=== PATIENT | female | born 1975 | race Caucasian/White ===

== ENCOUNTER → 2021-11-14 09:31 | Outpatient (CLI) | payer OTHER, SELFPAY | PROVIDERS: PCP Family Medicine; Visit Provider Physician Assistant | DX: R30.0 Dysuria (principal) | CPT/HCPCS: 87077; 87086; 87186 ==

== ENCOUNTER → 2022-01-23 09:52 | Outpatient (CLI) | payer OTHER, SELFPAY | PROVIDERS: PCP Family Medicine; Visit Provider Physician Assistant | DX: N34.3 Urethral syndrome, unspecified (principal) | CPT/HCPCS: 87086 ==

== ENCOUNTER 2022-09-04 09:39 | Day surgery (SDC) | payer OTHER, SELFPAY ==
[2022-09-04] MEDS: FLEETS ENEMA 1 EACH PR (10:36)
[2022-09-04 10:43] VITALS: BMI 24.5
[2022-09-04 10:48] VITALS: BP 106/70; PULSE 61; RESP 12; TEMP 36.9; O2SAT 100
[2022-09-04] MEDS: LACTATED RINGERS 1,000 ML 200 ML IV (10:58)
--- NOTE | 2022-09-04 11:58 | PM.HP.1 ---
History of Present Illness History of Present Illness Date Patient Seen: 09/04/22 Time Patient Seen: 11:58 Chief complaint: Colonoscopy Narrative: The patient presents for colorectal screening. They have never had any previous examination for such. No personal or family history of colon cancer. On further history denies any recent gastrointestinal symptoms. No nausea, vomiting, abdominal pain, loss of appetite, unexplained weight loss, change in bowel habits, or blood per rectum. Patient History Medical History Abnormal Pap smear of cervix (~2002) Chicken pox (~1982) History of malignant neoplasm of skin (~2006) Human papilloma virus (~2002) Oral herpes (~1996) Recurrent cold sores Surgical History Anesthesia History of knee surgery (~07/2018) History of removal of skin mole (~2003) History of third molar tooth extraction Status post delivery (07/29/08) Status post delivery (12/14/10) Status post colposcopy Status post colposcopy Family & Social History Family History Father Hyperlipidemia Mother Alzheimer's disease Breast cancer Grandfather Cancer Grandfather History of heart disease Social History: household members spouse Tobacco & Substance use: Smoking Status Never smoker alcohol intake current alcohol intake frequency 0-2 drinks per day Substance Use Type does not use Meds Home Medications and Allergies Home Medications Medication Instructions Recorded Confirmed Type valacyclovir 1 gram tablet See Rx Instructions .Route 06/19/22 09/04/22 Rx (Valtrex) .COMPLEX #20 tabs sodium,potassium,mag sulfates 17.5 See Rx Instructions PO .COMPLEX 08/30/22 09/04/22 Rx gram-3.13 gram-1.6 gram oral soln #354 mL (Suprep Bowel Prep Kit) Allergies Allergy/AdvReac Type Severity Reaction Status Date / Time sulfamethoxazole Allergy Mild Rash Verified 09/04/22 10:42 [From Bactrim] trimethoprim [From Bactrim] Allergy Mild Rash Verified 09/04/22 10:42 Exam Vital Signs (past 8 hours): - 09/04/22 10:48 Temperature 98.5 F Pulse Rate 61 Respiratory Rate 12 Blood Pressure 106/70 Pulse Oximetry 100 Oxygen Delivery Method Room Air Oxygen Delivery Method Room Air Narrative Exam Narrative: General adult woman alert oriented no acute distress Assessment & Plan Assessment & Plan narrative: The patient requires colorectal screening and colonoscopy is recommended. Technical details were discussed. Risks, benefits, alternatives explained. Risks including but not limited to myocardial infarction, aspiration, bleeding, pain, missed lesion, incomplete examination, need for further radiographic studies, colonic perforation, and need for major abdominal surgery were discussed. All questions were answered to their satisfaction, and they are in agreement with this plan. Time Spent With Patient Critical Care time: I spent a total of [] minutes of critical care time on this patient's care today; this time is exclusive of procedural time.
--- NOTE | 2022-09-04 12:01 | PM.OP.COLON ---
Operative Date/Time/Diagnoses Date of procedure: 09/04/22 Time of procedure: 12:01 Pre-op diagnosis: Colorectal screening Post-op diagnosis: same Procedure & Clinicians Study performed: Colonoscopy Same procedure as scheduled: Yes Indications: Colorectal screening Surgeon: Mckay Macario Procedure Notes Procedure in detail: The history and physical was performed/updated and the patient is ASA class is 1. The procedure was discussed in detail with the patient. Potential risks complications including infection, bleeding, missed diagnosis, perforation, need for surgery, and were explained. Their questions were answered and informed consent was obtained. Patient was brought to the procedure room and placed standard monitoring equipment. The patient's vital signs were monitored continuously throughout the entire procedure. Prior to starting time-out was performed. The patient was placed in the left lateral recumbent position. Procedural sedation was administered by anesthesia. Examination began with a thorough inspection of the perianal area there was no evidence of fissures, fistulae, external hemorrhoids or cutaneous malignancy. The colonoscopy scope was then placed into the anal canal and was advanced to the cecum, which was identified by the ileocecal valve, the appendiceal orifice and the confluence of the taenia. The scope was then slowly withdrawn examining colon thoroughly in all directions, irrigating it of any residual stool. Normal healthy colon. No masses polyps or inflammation. The patient tolerated the procedure well. They will be discharged once criteria are met. The prep was of good/excellent quality. The withdrawl time was 6 minutes. Impression: Normal colonoscopy Post-procedure Recommendations: Colonoscopy in 10 years and High fiber diet Disposition: same day surgery
[2022-09-04 12:34] VITALS: BP 111/75; PULSE 76; RESP 20; TEMP 37.2; O2SAT 98
[2022-09-04 12:39] VITALS: BP 106/71; PULSE 73; RESP 24; O2SAT 99
--- NOTE | 2022-09-04 12:43 | SUR.PHASEII ---
Dr. Darden Unable to enter orders for dischage in [facility]. Calling IT. Verbal order to discharge, normal colonoscopy.
[2022-09-04 12:45] VITALS: BP 109/70; PULSE 61; RESP 18; TEMP 37.2; O2SAT 99
== END 2022-09-04 13:05 | disposition home or self-care (01) ==
PROVIDERS: PCP Registered Nurse Diabetes Educator; Referring Provider Surgery; Visit Provider Surgery
PROC: 0DJD8ZZ Inspection of Lower Intestinal Tract, Via Natural or Artificial Opening Endoscopic (ICD-10-PCS; CPT 45378; principal; 2022-09-04 10:45)
DX: Z12.11 Encounter for screening for malignant neoplasm of colon (principal)
CPT/HCPCS: 45378; J2704

== ENCOUNTER → 2022-09-10 07:56 | Outpatient (CLI) | payer OTHER, SELFPAY ==
--- NOTE | 2022-09-10 07:57 | DI.US.S_ITS ---
PROCEDURE: US ABDOMEN LIMITED INDICATIONS: RULE OUT LYPOMA TECHNIQUE: Real-time focused scanning was performed of the abdomen, with image documentation. COMPARISON: None. FINDINGS: Targeted ultrasound of the left medial scapular region demonstrates no sonographic abnormality. IMPRESSION: No sonographic abnormality. Dictated by: Corey Jarvis M.D. on 09/10/2022 at 11:19 Approved by: Corey Jarvis M.D. on 09/10/2022 at 11:19
--- NOTE | 2022-09-10 08:13 | DI.MG.S_ITS ---
Procedure: MM screening mammo BI BILATERAL DIGITAL SCREENING MAMMOGRAM 3D/2D WITH CAD: 09/10/2022 CLINICAL: Routine screening. Comparison is made to exams dated: 03/30/2014 mammogram, 03/20/2013 mammogram, and 03/19/2012 mammogram - [facility]. Both breasts are heterogeneously dense, which may obscure small masses (category c / 51-75% glandular tissue). Current study was also evaluated with a Computer Aided Detection (CAD) system. No significant masses, calcifications, or other findings are seen in either breast. There has been no significant interval change. IMPRESSION: NEGATIVE There is no mammographic evidence of malignancy. A 1 year screening mammogram is recommended. Based on Tyrer-Cuzick model (a risk assessment model), the patient's lifetime risk is 29.0% and her 10 year risk is 6.1%. If a patient has an elevated risk, a more comprehensive evaluation should be considered and/or a referral to a genetic counselor. The [place] [employer], [employer], and NCCN Guidelines advise the consideration of Breast MRI as an adjunct to screening mammography in patients whose Lifetime risk to develop breast cancer is 20% or higher. This exam was interpreted at Station ID: [id number]. Continued Report - Page 2 of 2 Patient Name: ARUN SAUER date: 1975 Sex: F Attending Physician: Norman Indications: Date: 09/10/2022 09:36 At the request of: LOW KILLIAN Procedure: MM screening mammo BI NOTE: For mammograms, a report in lay terms will be sent to the patient. Approximately 15% of breast malignancies will not be visualized mammographically. In the management of a palpable breast mass, a negative mammogram must not discourage biopsy of a clinically suspicious lesion. Electronically Signed By: Lokesh Butcher M.D. [email or web address]:09/10/2022 09:36:13 letter sent: Normal Exam ACR BI-RADS Category 1: Negative 3341F
== END ==
PROVIDERS: PCP Registered Nurse Diabetes Educator; Referring Provider Registered Nurse Diabetes Educator; Visit Provider Registered Nurse Diabetes Educator
DX: R22.2 Localized swelling, mass and lump, trunk (principal); Z12.31 Encounter for screening mammogram for malignant neoplasm of breast
CPT/HCPCS: 76705; 77063; 77067

== ENCOUNTER → 2023-09-24 14:44 | Outpatient (CLI) | payer OTHER, SELFPAY ==
--- NOTE | 2023-09-24 14:45 | DI.MG.S_ITS ---
BILATERAL DIGITAL SCREENING MAMMOGRAM 3D/2D WITH CAD: 09/24/2023 CLINICAL: Routine screening. Comparison is made to exams dated: 09/10/2022 mammogram, 03/20/2013 mammogram, and 03/30/2014 mammogram - [facility]. Both breasts are heterogeneously dense, which may obscure small masses (category c / 51-75% glandular tissue). Current study was also evaluated with a Computer Aided Detection (CAD) system. No significant masses, calcifications, or other findings are seen in either breast. There has been no significant interval change. IMPRESSION: NEGATIVE There is no mammographic evidence of malignancy. A 1 year screening mammogram is recommended. Based on Tyrer-Cuzick model (a risk assessment model), the patient's lifetime risk is 28.9% and her 10 year risk is 6.4%. If a patient has an elevated risk, a more comprehensive evaluation should be considered and/or a referral to a genetic counselor. The [employer], [employer], and NCCN Guidelines advise the consideration of Breast MRI as an adjunct to screening mammography in patients whose Lifetime risk to develop breast cancer is 20% or higher. This exam was interpreted at Station ID: [id number]. NOTE: For mammograms, a report in lay terms will be sent to the patient. Approximately 15% of breast malignancies will not be visualized mammographically. In the management of a palpable breast mass, a negative mammogram must not discourage biopsy of a clinically suspicious lesion. Electronically Signed By: Christophe lei/melba:09/25/2023 08:34:02 letter sent: Normal Exam ACR BI-RADS Category 1: Negative 3341F
== END ==
PROVIDERS: PCP Registered Nurse Diabetes Educator; Referring Provider Registered Nurse Diabetes Educator; Visit Provider Registered Nurse Diabetes Educator
DX: Z12.31 Encounter for screening mammogram for malignant neoplasm of breast (principal); R92.333 Mammographic heterogeneous density, bilateral breasts
CPT/HCPCS: 77063; 77067

== ENCOUNTER → 2023-10-31 08:00 | Outpatient (CLI) | payer OTHER, SELFPAY ==
[2023-10-31 08:38] LABS: Hematocrit 37.8 % (36-46); Hemoglobin 12.8 g/dL (12.0-16.0); Mean Corpuscular HGB Conc 33.9 % (30-36); Mean Corpuscular Hemoglobin 31.6 PG (26-34); Mean Corpuscular Volume 93.1 fL (80-100); Platelet Count 267 X10^3/uL (150-400); Red Blood Cell Count 4.06 X10^6/uL (4.0-5.2); Red Cell Distribution Width 12.6 % (11.6-14.8); White Blood Cell Count 5.1 X10^3/uL (4.5-11.0)
[2023-10-31 09:00] LABS: Alanine Aminotransferase 17 IU/L (<35); Albumin 4.1 g/dL (3.5-5.0); Albumin Globulin Ratio 1.8 (1.0-2.8); Alkaline Phosphatase 48 U/L (38-126); Aspartate Aminotransferase 30 IU/L (14-36); Bilirubin Total 0.7 mg/dL (0.2-1.3); Blood Urea Nitrogen 15 mg/dL (7-17); Calcium 9.1 mg/dL (8.4-10.2); Carbon Dioxide 23 mmol/L (22-32); Chloride 109 mmol/L (98-107); Cholesterol 184 mg/dL (140-199); Estimated Glomerular Filt Rate > 60 mL/min (>60); Globulin 2.3 g/dL (1.7-4.1); Glucose 88 mg/dL (70-100); HDL Cholesterol 74 mg/dL (40-60); HEMOLYSIS < 15 (0-50); LDL Cholesterol Calculated 100 mg/dL (<100); Potassium 4.4 mmol/L (3.4-5.1); Sodium 137 mmol/L (137-145); Total Protein 6.4 g/dL (6.3-8.2); Triglycerides 50 mg/dL (35-150)
[2023-10-31 09:28] LABS: TSH w/ Reflex to FT4 2.68 uIU/mL (0.47-4.68)
[2023-10-31 17:05] LABS: Rubella Antibody IgG 5.3 IU/mL (>15)
[2023-11-01 09:45] LABS: Rubeola Measles IgG < 13.5 AU/mL (Immune >16.4)
== END ==
PROVIDERS: PCP Registered Nurse Diabetes Educator; Referring Provider Registered Nurse Diabetes Educator; Visit Provider Registered Nurse Diabetes Educator
DX: Z01.419 Encounter for gynecological examination (general) (routine) without abnormal findings (principal); Z01.84 Encounter for antibody response examination
CPT/HCPCS: 36415; 80053; 80061; 84443; 85027; 86735; 86762; 86765

== ENCOUNTER → 2023-11-25 08:26 | Outpatient (CLI) | payer OTHER, SELFPAY ==
--- NOTE | 2023-11-25 08:27 | DI.US.S_ITS ---
PROCEDURE: US PELVIC COMPLETE INDICATIONS: eval heavy menses TECHNIQUE: Real-time scanning was performed of the pelvic organs, with image documentation. Additional endovaginal scanning was necessary due to incomplete visualization of the adnexal and endometrial structures by transabdominal scanning. COMPARISON: None. FINDINGS: Uterus: Uterus is anteverted and normal in size at 9.6 x 4.3 x 5.2 cm. The myometrium is homogeneous. The endometrium measures 13 mm combined thickness. Ovaries: The right ovary measures 2.4 x 1.9 x 1.8 cm, with a calculated ovarian volume of 2.4 cc. The left ovary measures 2.6 x 1.4 x 2.9 cm, with a calculated ovarian volume of 2.1 cc. The ovaries have a normal sonographic appearance. Less than 12 follicles can be seen in each ovary. No adnexal masses are seen. There is a complex right ovarian cyst which measures 1.5 x 1.1 x 1.2 cm, and a crenulated appearing cyst in the left ovary which measures 1.5 x 1.0 x 1.7 cm. Other: No pathologic free abdominal or pelvic fluid. IMPRESSION: 1. Probable right hemorrhagic cyst versus endometrioma. 6-12 week sonographic follow-up recommended. 2. Probable recently ruptured left follicular cyst. We strive to produce accurate, complete, and clear reports of imaging services. To assist us in improving patient care, this report was composed using standard report templates and voice recognition software. Therefore, it may contain abnormal punctuation, insertions and/or omissions. Occasional wrong-word or sound-alike substitutions may occur. Though we review the report and make efforts to correct it, we do recommend that the report be read carefully in proper context to recognize any text inaccuracies. Dictated by: Leah Obrien M.D. on 11/25/2023 at 11:55 Approved by: Leah Obrien M.D. on 11/25/2023 at 11:57
== END ==
LOC: US 08:27
PROVIDERS: PCP Registered Nurse Diabetes Educator; Referring Provider Registered Nurse Diabetes Educator; Visit Provider Registered Nurse Diabetes Educator
DX: N92.0 Excessive and frequent menstruation with regular cycle (principal)
CPT/HCPCS: 76856

== ENCOUNTER → 2024-01-15 10:13 | Outpatient (CLI) | payer OTHER, SELFPAY ==
--- NOTE | 2024-01-15 10:14 | DI.US.S_ITS ---
PROCEDURE: US PELVIC COMPLETE INDICATIONS: 6 week f/u US TECHNIQUE: Real-time scanning was performed of the pelvic organs, with image documentation. Additional endovaginal scanning was necessary due to incomplete visualization of the adnexal and endometrial structures by transabdominal scanning. COMPARISON: [facility], US, US PELVIC COMPLETE, 11/25/2023, 9:07. FINDINGS: Uterus: Uterus is anteverted and normal in size at 9.2 x 4.7 x 4.5 cm. The myometrium is homogeneous. The endometrium measures 12 mm combined thickness. There is a 1.2 x 0.7 x 1.2 cm hyperechoic lesion in the endometrium with internal vascularity, raising concern for a polyp. Ovaries: The right ovary measures 3.0 x 2.2 x 2.5 cm, with a calculated ovarian volume of 8.6 cc. The left ovary measures 2.4 x 1.2 x 1.7 cm, with a calculated ovarian volume of 2.5 cc. There is a 2.6 cm simple cyst in the right ovary. Previously seen possible hemorrhagic cyst versus endometrioma in the right ovary has resolved. The left ovary is unremarkable. Less than 12 follicles can be seen in each ovary. No adnexal masses are seen. Other: No pathologic free abdominal or pelvic fluid. IMPRESSION: 1. Findings concerning for 1.2 cm polyp in the endometrial canal. 2. Previously seen possible hemorrhagic cyst versus endometrioma in the right ovary has resolved. Simple cyst in the right ovary. We strive to produce accurate, complete, and clear reports of imaging services. To assist us in improving patient care, this report was composed using standard report templates and voice recognition software. Therefore, it may contain abnormal punctuation, insertions and/or omissions. Occasional wrong-word or sound-alike substitutions may occur. Though we review the report and make efforts to correct it, we do recommend that the report be read carefully in proper context to recognize any text inaccuracies. Dictated by: Ashtyn Villarreal M.D. on 01/15/2024 at 14:08 Approved by: Ashtyn Villarreal M.D. on 01/15/2024 at 14:13
== END ==
PROVIDERS: PCP Registered Nurse Diabetes Educator; Referring Provider Registered Nurse Diabetes Educator; Visit Provider Registered Nurse Diabetes Educator
DX: N83.291 Other ovarian cyst, right side (principal)
CPT/HCPCS: 76856

== ENCOUNTER 2024-03-30 13:55 | Day surgery (SDC) | payer OTHER, SELFPAY ==
[2024-03-26 09:42] VITALS: BMI 25.0
--- NOTE | 2024-03-30 | PATH_ITS ---
[facility] Accession Number: [id number] No. of containers..01 Tissue . 01 Material submitted: . endometrium - ENDOMETRIAL . 01 Diagnosis: ENDOMETRIUM, CURETTINGS: Histologic features suggestive of benign endometrial polyp. Background proliferative endometrium. No significant cytologic atypia and no malignancy. [facility] 04/01/2024 1241 Local . 01 Electronically signed: . Jeana Mccabe MD, Pathologist NPI- [id number] . 01 Gross description: . Received in formalin with two patient identifiers and endometrial curetting, are multiple katz and brown soft tissue fragments admixed with mucoid material aggregating to 2.6 x 0.5 x 0.2 cm. Filtered and submitted in A1. ([id number]) /V 03/31/2024 1050 Local . 01 Pathologist provided ICD-10: N84.0, N93.9 . 01 CPT . 385249 Specimen Comment: A courtesy copy of this report has been sent to [facility] Pathology Performed at: [address] [address], [place], [place] [id number] MD Cale Massey MD Phone: [phone]
[2024-03-30 14:29] VITALS: BP 109/69; PULSE 65; RESP 16; TEMP 36.2; O2SAT 98; BMI 25.0
[2024-03-30] MEDS: LACTATED RINGERS 1,000 ML 84 ML IV (14:44)
--- NOTE | 2024-03-30 16:09 | P.HPOB_ITS ---
History of Present Illness History of Present Illness Reason for admission: other Narrative: Elsy Mujica is a 48 year old female with acute on chronic HMB with recent pelvic US consistent with polyp. Patient was last seen in office January 2024 with plan for procedure pending coordinatino of patient schedule. Today patient presents for procedure as scheduled, denies significant intervening changes in personal or family health history since time of last encounter. Affirms desire to proceed with procedure as scheduling including placement of levonorgestrel intrauterine device (mirena IUD). Operative consent completed in PACU today [facility] Medical History (Updated 01/17/24 @ 16:43 by Dimple Stewart MD) Abnormal uterine bleeding (AUB) Abnormal ultrasound of pelvis Oral herpes (~1996) Chicken pox (~1982) Human papilloma virus (~2002) Abnormal Pap smear of cervix (~2002) History of malignant neoplasm of skin (~2006) Recurrent cold sores Surgical History Anesthesia History of knee surgery (~07/2018) History of removal of skin mole (~2003) Status post delivery (12/14/10) Status post delivery (07/29/08) History of third molar tooth extraction Status post colposcopy Status post colposcopy Family History Father Hyperlipidemia Mother Alzheimer's disease Breast cancer Grandfather Cancer Grandfather History of heart disease Social History household members: spouse Smoking Status: Never smoker alcohol intake: current Meds Home Medications and Allergies Home Medications Medication Instructions Recorded Confirmed Type valacyclovir 1 gram tablet 2,000 mg PO PRN PRN breakout 03/26/24 03/30/24 History (Valtrex) Allergies Allergy/AdvReac Type Severity Reaction Status Date / Time sulfamethoxazole Allergy Mild Rash Verified 03/30/24 14:20 [From Bactrim] trimethoprim [From Bactrim] Allergy Mild Rash Verified 03/30/24 14:20 Review of Systems Review of Systems ROS: Yes All systems reviewed with the patient and are negative except as otherwise documented Exam Vital Signs (past 8 hours): - 03/30/24 14:29 Temperature 97.2 F L Pulse Rate 65 Respiratory Rate 16 Blood Pressure 109/69 Pulse Oximetry 98 Oxygen Delivery Method Room Air Oxygen Delivery Method Room Air Const General: cooperative and healthy appearing Nutritional Appearance: average body habitus Orientation: alert, awake and oriented x3 Limitations: mental status not altered Resp Effort & Inspection: normal respiratory effort Cardio Pulses: normal peripheral pulses Other: deferred Skin General: no rashes or lesions noted Neuro General: patient alert, patient awake and patient oriented x3 Psych Mental Status: mental status grossly normal Judgment: judgment good Assessment & Plan Assessment and plan (1) Abnormal uterine bleeding (AUB): Status: Acute (2) Abnormal ultrasound of pelvis: Status: Acute Plan 48yo with acute on chronic HMB, suspected AUB-P per recent pelvic US Pt affirms desire to proceed with procedure as scheduled Operative consent completed anticipated postoperative course and precautions verbally reviewed dispo: to OR Time-Based Coding :: [TOTAL MINUTES] spent with patient and on the chart (including review of chart, obtaining history, exam, reviewing outside data, placing orders, documenting exam and treatment plan, and counseling patient) on [DATE].
--- NOTE | 2024-03-30 16:09 | PM.PREOP ---
Pre-operative Note Interval Note History & Physical reviewed/Exam performed by Physician: No Changes to H&P: No H&P completed within 30 days and has changed as indicated here:: 03/30/24 ASA Class (for procedural sedation): II
--- NOTE | 2024-03-30 16:19 | SUR.OPER ---
Lithotomy on padded OR bed, head on pillow, arms secured on padded arm boards at <90 degrees abduction. Legs secured in padded yellow fins stirrups.
--- NOTE | 2024-03-30 17:22 | PM.OP.1 ---
Operative Date/Time/Diagnoses Date of procedure: 03/30/24 Time of procedure: 17:22 Pre-op diagnosis: AUB Post-op diagnosis: same Procedure & Clinicians Procedure: hysteroscopy dilation and curettage placement of mirena IUD Same procedure as scheduled: Yes Indications: AUB, abnormal pelvic imaging Surgeon: Dimple Stewart Click Yes if Unassisted: Yes Anesthesia Type: General Operative Notes Findings: normal external female genitalia cervix visually wnl no visualized intrauterine polyp, unable to visualize R ostia secondary to limited visualization, L ostia visualized Closure Type: not applicable Specimen(s): other (endometrial currettings ) Applied: implant(s) (mirena IUD: S/N [id number] Lot [id number] ) Estimated Blood Loss (mL): 5 Blood products transfused: none Procedure in detail: Pt was taken to the operating room, transferred to OR table and anesthesia was induced with placement of .? Pt had her legs placed in Pierre stirrups and an exam under anesthesia was performed. The patient was prepped and draped in a sterile fashion.? A time out was performed. ?The bladder was emptied via straight catheter in sterile fashion.? A sterile speculum was inserted into the vagina.? The cervix was visualized and grasped anteriorly using a single tooth tenaculum.? The uterus sounded to [XXX] cm and the cervical os was serially dilated using Olson dilators up to 17f to allow for passage of the hysteroscope.? The 5mm 0 degree hysteroscope was then inserted into the uterus with findings as noted, noted limited visualization secondary to degree of hysteroscope without availability of alternative equipment.? The hysteroscope was removed and the uterus was sharply curetted until a gritty texture was noted throughout.? The mirena IUD obtained from office supply was placed per fire services plumber instructions, strings trimmed to 3cm. The tenaculum was removed and hemostasis was noted at insertion sites.? The speculum was removed and hemostasis was again noted to be excellent.? The patient then had her legs taken out of stirrups.? The patient tolerated the procedure well and without difficulty.? The patient was awakened from anesthesia and taken to PACU in stable condition. Complications: none Post-operative Condition: stable Disposition: PACU
[2024-03-30 17:27] VITALS: BP 114/68; PULSE 79; RESP 18; TEMP 36.2; O2SAT 100
[2024-03-30 17:31] VITALS: BP 117/69; PULSE 80; RESP 12; O2SAT 99
[2024-03-30 17:36] VITALS: BP 117/69; PULSE 74; RESP 12; O2SAT 99
[2024-03-30 17:41] VITALS: BP 120/71; PULSE 62; RESP 12; TEMP 36.2; O2SAT 99
[2024-03-30 17:54] VITALS: BP 126/67; PULSE 55; RESP 12; TEMP 36.7; O2SAT 97
== END 2024-03-30 18:08 | disposition home or self-care (01) ==
PROVIDERS: PCP Registered Nurse Diabetes Educator; Referring Provider Obstetrics & Gynecology; Visit Provider Obstetrics & Gynecology
PROC: 0UDB8ZZ Extraction of Endometrium, Via Natural or Artificial Opening Endoscopic (ICD-10-PCS; CPT 58558; principal; 2024-03-30 15:30)
DX: N93.9 Abnormal uterine and vaginal bleeding, unspecified (principal); Z30.430 Encounter for insertion of intrauterine contraceptive device; R93.89 Abnormal findings on diagnostic imaging of other specified body structures
CPT/HCPCS: 58558; 58300; J1885; J2250; J2405; J2704; J3010; J7298

== ENCOUNTER → 2024-10-05 15:30 | Outpatient (CLI) | payer OTHER, SELFPAY ==
[2024-10-05 16:29] LABS: Influenza A - CEPHEID Flu A NEGATIVE (NEGATIVE); Influenza B - CEPHEID Flu B POSITIVE (NEGATIVE); Respiratory Syncytial Virus Negative (Negative)
[2024-10-05 16:31] LABS: COVID-19 CEPHEID 4-PLEX PCR Negative (Negative)
== END ==
PROVIDERS: PCP Registered Nurse Diabetes Educator; Visit Provider Family Medicine
DX: R05.1 Acute cough (principal)
CPT/HCPCS: 0241U

== ENCOUNTER → 2024-11-02 13:15 | Outpatient (CLI) | payer OTHER, SELFPAY ==
--- NOTE | 2024-11-02 13:16 | DI.MG.S_ITS ---
MM screening mammo BI: 11/02/2024. BI-RADS: 1 CLINICAL: 49-year old female for bilateral screening mammogram. Tyrer-Cuzick lifetime risk of 22.4%. Current reported family history of breast cancer: mother. PRIOR EXAMS 09/24/2023, 09/10/2022. MAMMOGRAPHY TECHNIQUE: 2D and 3D (tomosynthesis) digital mammographic views obtained, with additional images as needed for full coverage. Current study was also evaluated with a Computer Aided Detection (CAD) system. DENSITY C. The breasts are heterogeneously dense, which may obscure small masses. MAMMOGRAPHY FINDINGS Bilateral: No suspicious mass, asymmetry, microcalcification, or other abnormality seen. IMPRESSION: * No evidence of malignancy. RECOMMENDATIONS Bilateral * According to the Tyrer-Cuzick Risk Assessment Model, based on the information provided your patient has a greater than 20% lifetime risk for developing breast cancer. Consider supplemental screening with breast MRI and participation in a high risk screening program. * Annual screening mammography. OVERALL ASSESSMENT CATEGORY BI-RADS-1: Negative. The [employer] recommends annual screening mammography beginning at age 40 for women with average risk of breast cancer. ELECTRONICALLY SIGNED: Lokesh Butcher M.D. on 11/02/2024 at 06:32:07 PM PT Interpreting Station ID: [id number]
== END ==
LOC: MAMMO 13:16
PROVIDERS: PCP Registered Nurse Diabetes Educator; Referring Provider Registered Nurse Diabetes Educator; Visit Provider Registered Nurse Diabetes Educator
DX: Z12.31 Encounter for screening mammogram for malignant neoplasm of breast (principal); Z80.3 Family history of malignant neoplasm of breast; R92.333 Mammographic heterogeneous density, bilateral breasts
CPT/HCPCS: 77063; 77067